=== PATIENT | female | born 1990 | race Hispanic/Latino ===

== ENCOUNTER 2017-02-21 18:04 | Emergency (ER) | payer OTHER ==
[~2017-02-21] VITALS: Ht 162.6 cm; Wt 70.5 kg
[~2017-02-21 18:04] MED LIST: INDOCIN25 MG PO; KEFLEX500 MG PO
[2017-02-21 18:23] VITALS: BP 132/74
[2017-02-21] MEDS ORDERED: ULTRAM50 MG PO (20:01)
[2017-02-21] MEDS ORDERED: FLEXERIL10 MG PO (20:01)
== END 2017-02-21 20:17 | disposition home or self-care (01) ==
LOC: EXP 18:04 → EME 18:04 → EXP 20:17
DX: S39.012A Strain of muscle, fascia and tendon of lower back, initial encounter (principal); Y99.0 Civilian activity done for income or pay; X50.0XXA Overexertion from strenuous movement or load, initial encounter
CPT/HCPCS: 99281; 99284